=== PATIENT | male | born 1985 | race Caucasian/White ===

== ENCOUNTER 2022-12-22 08:48 | Emergency (ER) | payer OTHER ==
[2022-12-22] MEDS ORDERED: Cyclobenzaprine 10 MG Tab PO ONE (09:00)
[2022-12-22] MEDS ORDERED: traMADol 50 MG Tab PO ONE (09:00)
[2022-12-22] MEDS ORDERED: Naproxen 500 MG Tab PO ONE (09:01)
== END 2022-12-22 10:40 | disposition home or self-care (01) ==
LOC: MW.ED 08:48
DX: S40.011A Contusion of right shoulder, initial encounter (principal); Z72.0 Tobacco use; Z88.8 Allergy status to other drugs, medicaments and biological substances; Y99.0 Civilian activity done for income or pay
CPT/HCPCS: 73030; 99283; A9270

== ENCOUNTER → 2024-03-28 | Day surgery (SDC) | payer BC, OTHER ==
[~2024-03-28] MED LIST: Lactated Ringers 1,000 ML IV SCH; Propofol 200 MG/20 ML SDV ONE; propofoL 50 ML ONE
== END ==
LOC: MW.SDS 09:00
PROVIDERS: ATTEND Surgery
DX: D12.6 Benign neoplasm of colon, unspecified (principal); K57.30 Diverticulosis of large intestine without perforation or abscess without bleeding; F41.9 Anxiety disorder, unspecified; Z87.891 Personal history of nicotine dependence
CPT/HCPCS: 45385; J2704; J7120; 00811